=== PATIENT | female | born 1980 | race African-American/Black ===

== ENCOUNTER 2021-10-20 10:50 | Emergency (ER) | payer MEDICAID ==
[~2021-10-20] VITALS: Ht 170.2 cm; Wt 97.0 kg
[2021-10-20 10:54] VITALS: BP 130/97
[2021-10-20] MEDS ORDERED: TETRACAINE 0.5% OPHTH DROPS 4ML RIGHTEYE ONE (11:15)
[2021-10-20] MEDS ORDERED: FLUORESCEIN SODIUM 1MG/STRIP RIGHTEYE ONE (11:15)
[2021-10-20] MEDS ORDERED: ERYT1OIN6 RIGHTEYE (12:14)
== END 2021-10-20 12:35 | disposition home or self-care (01) ==
LOC: ER 10:50
DX: H10.9 Unspecified conjunctivitis (principal); I10 Essential (primary) hypertension; Z90.710 Acquired absence of both cervix and uterus
CPT/HCPCS: 99283